=== PATIENT | female | born 1945 | race Caucasian/White ===

== ENCOUNTER 2016-12-04 14:49 | Inpatient (IN) | payer MEDICARE, BC ==
[~2016-12-04] VITALS: Ht 160 cm; Wt 82.3 kg
[2016-12-04] VITALS (8 sets, daily range): BP systolic 102–146; BP diastolic 53–65; PULSE 64–71; RESP 16–19; TEMP 98.1; O2SAT 95–100
[~2016-12-04 14:49] MED LIST: ARIC5TAB PO; ASPI325T PO; CITA10TA4 PO; LIPI40TA PO; MEMA1CAP2 PO; METO25 PO; OMEP20TA PO; [UNRECOGNIZED DRUG - CODE] PO; [UNRECOGNIZED DRUG - SUPPLY]
--- NOTE | 2016-12-04 15:04 | PD ---
HPI Chief Complaint: Fall Time Seen by Provider: 14:57 Travel History International Travel<30 days: No Contact w/Intl Traveler<30days: No Traveled to known affect area: No History of Present Illness HPI This is a 71-year-old female who presents to the emergency department having fallen in the shower. She has a history of dementia. She frequently falls and her told EMS that she fell twice this week already. Her was able to move her out of the shower and put her in bed where EMS found her. EMS reports that she was fairly somnolent upon their arrival and they placed a nasal airway at which point she awoke. Patient doesn't provide much history but EMS reports the felt like she was more confused this past several days. PFSH Past Medical History Hx Anticoagulant Therapy: Yes Alzheimer's Disease: Yes Arthritis: No Asthma: No Anxiety: No Depression: No Heart Rhythm Problems: Yes Cancer: No Cardiovascular Problems: No High Cholesterol: Yes Chemotherapy: No Chest Pain: No Congestive Heart Failure: No COPD: No Cerebrovascular Accident: Yes (TIA) Diabetes: No Endocrine: No Genitourinary: No Hypertension: Yes Musculoskeletal: No Neurologic: Yes (Dementia) Psychiatric: Yes (Dementia) Reproductive: No Respiratory: No Migraines: No Radiation Therapy: No Seizures: No Sleep Apnea: No Thyroid Disease: No ?: Not Past Surgical History Abdominal Surgery: No AICD: No Arteriovenous Shunt: No Cardiac Surgery: No Ear Surgery: No Endocrine Surgery: No Eye Surgery: No Genitourinary Surgery: No Gynecologic Surgery: No Insulin Pump: No Joint Replacement: No Oral Surgery: No Pacemaker: No Thoracic Surgery: No Other Surgery: Yes Social History Alcohol Use: No Tobacco Use: No Substance Use: No Allergies-Medications (Allergen,Severity, Reaction): Coded Allergies: Tetanus Toxoid (Verified Allergy, Severe, paralyzed , 12/04/16) Paralyzed for 24 hours after shot Reported Meds & Prescriptions Reported Meds & Active Scripts Active Reported Aspirin 325 Mg Tab 325 Mg PO DAILY Metoprolol Tartrate 25 Mg Tab 25 Mg PO BID Namenda Xr (Memantine) 28 Mg Caper 28 Mg PO DAILY Omeprazole 20 Mg Tab 20 Mg PO DAILY Donepezil 10 Mg Tab 10 Mg PO HS Review of Systems ROS Limitations: Poor Historian Physical Exam Narrative GENERAL: Frail female in no acute distress SKIN: Warm and dry. HEAD: Atraumatic. Normocephalic. EYES: Pupils equal and round. No injection or drainage. ENT: Moist mucous membranes NECK: Trachea midline. CARDIOVASCULAR: Regular rate and rhythm. No murmur appreciated. RESPIRATORY: Clear to auscultation. Breath sounds equal bilaterally. GASTROINTESTINAL: Abdomen soft, non-tender, nondistended. MUSCULOSKELETAL: No obvious deformities. NEUROLOGICAL: Confused, But Doesn't Answer Questions Appropriately. No obvious cranial nerve deficits. Moving all extremities. PSYCHIATRIC: Poor insight and judgment. Data Data Last Documented VS Vital Signs Date Time Temp Pulse Resp B/P Pulse Ox O2 Delivery O2 Flow Rate FiO2 12/04/16 15:50 71 16 102/55 98 Nasal Cannula 2 12/04/16 14:49 98.1 Orders Complete Blood Count With Diff (12/04/16 14:57) Comprehensive Metabolic Panel (12/04/16 14:57) ^ Insert Iv (12/04/16 14:57) Ct Brain W/O Iv Contrast(Rout) (12/04/16 ) Cath For Specimen (12/04/16 14:57) Urinalysis - C+S If Indicated (12/04/16 14:57) Urine Culture (12/04/16 15:10) Ceftriaxone Inj (Rocephin Inj) (12/04/16 16:30) Labs Laboratory Tests Test 12/04/16 12/04/16 15:10 15:15 Urine Color YELLOW Urine Turbidity HAZY Urine pH 5.5 Urine Specific [place] 1.020 Urine Protein 30 mg/dL Urine Glucose (UA) NEG mg/dL Urine Ketones NEG mg/dL Urine Occult Blood SMALL Urine Nitrite NEG Urine Bilirubin NEG Urine Urobilinogen LESS THAN 2.0 MG/DL Urine Leukocyte Esterase LARGE Urine RBC 5 /hpf Urine WBC 154 /hpf Urine WBC Clumps MOD Urine Squamous Epithelial 1 /hpf Cells Urine Bacteria MANY /hpf Urine Hyaline Casts 18 /lpf Urine Mucus MANY /lpf Microscopic Urinalysis Comment CATH-CULTURE IND White Blood Count 7.9 TH/MM3 Red Blood Count 4.72 MIL/MM3 Hemoglobin 14.2 GM/DL Hematocrit 42.6 % Mean Corpuscular Volume 90.3 FL Mean Corpuscular Hemoglobin 30.0 PG Mean Corpuscular Hemoglobin 33.3 % Concent Red Cell Distribution Width 14.6 % Platelet Count 156 TH/MM3 Mean Platelet Volume 8.8 FL Neutrophils (%) (Auto) 74.7 % Lymphocytes (%) (Auto) 13.2 % Monocytes (%) (Auto) 10.2 % Eosinophils (%) (Auto) 1.2 % Basophils (%) (Auto) 0.7 % Neutrophils # (Auto) 5.9 TH/MM3 Lymphocytes # (Auto) 1.0 TH/MM3 Monocytes # (Auto) 0.8 TH/MM3 Eosinophils # (Auto) 0.1 TH/MM3 Basophils # (Auto) 0.1 TH/MM3 CBC Comment AUTO DIFF Sodium Level 141 MEQ/L Potassium Level 3.4 MEQ/L Chloride Level 105 MEQ/L Carbon Dioxide Level 25.5 MEQ/L Anion Gap 11 MEQ/L Blood Urea Nitrogen 19 MG/DL Creatinine 1.30 MG/DL Estimat Glomerular Filtration 40 ML/MIN Rate Random Glucose 108 MG/DL Calcium Level 8.3 MG/DL Total Bilirubin 0.4 MG/DL Aspartate Amino Transf 59 U/L (AST/SGOT) Alanine Aminotransferase 29 U/L (ALT/SGPT) Alkaline Phosphatase 73 U/L Total Protein 6.9 GM/DL Albumin 3.2 GM/DL MDM Medical Decision Making Medical Screen Exam Complete: Yes Emergency Medical Condition: Yes Interpretation(s) Afebrile, normotensive No leukocytosis Mild renal insufficiency Urinalysis: Urinary tract infection Last [address] 12/04/16 0000 Signed Impressions: Service Date/Time: Sunday, December 04, 2016 15:23 - CONCLUSION: No significant change has occurred. Dusty Woodward MD Differential Diagnosis Urinary tract infection, intracranial hemorrhage, concussion, electrolyte abnormality Narrative Course This is a 71-year-old female who has a history of advanced dementia who presents to the emergency department having had a fall at home in the shower. She was placed on a monitor and an IV was established. Labs are obtained which are reassuring with some mild acute kidney injury. She was given a liter of IV hydration. Urinalysis demonstrates a urinary tract infection. CT of the head was negative for intracranial hemorrhage. Per nursing conversation with the patient's patient appears at her neurologic baseline. Patient will be discharged home. Diagnosis Primary Impression: Urinary tract infection Qualified Code: N30.00 - Acute cystitis without hematuria Patient Instructions: General Instructions Additional Instructions: If you develop fever, persistent vomiting, back pain, or inability to eat return to the emergency department as your urine infection may have progressed to a kidney infection. Complete your antibiotics as prescribed. Stay well hydrated with Gatorade or water. Followup with your primary care physician in 2-3 days if your symptoms have not resolved. Med/Other Pt SpecificInfo: Prescription(s) given Scripts Cephalexin (Keflex)500 Mg [id number] Mg PO Q12H 7 Days Ref 0 Prov:Pepper Chris MD 12/04/16 Disposition: 01 DISCHARGE HOME Condition: Stable Pepper Chris MD Dec 04, 2016 15:04
[2016-12-04] MEDS ORDERED: METO25TA3 PO (15:27)
[2016-12-04] MEDS ORDERED: MEMA28CA PO (15:27)
[2016-12-04] MEDS ORDERED: ASPI325T PO (15:27)
[2016-12-04] MEDS ORDERED: DONE10TA7 PO (15:27)
[2016-12-04] MEDS ORDERED: OMEP20TA PO (15:27)
[2016-12-04 15:32] LABS: BACTERIA, URINE MANY /hpf; BLOOD, URINE SMALL (NEG); GLUCOSE,URINE NEG (NEG); HYALINE CAST, URINE 18 /lpf (RARE); KETONE, URINE NEG (NEG); MUCUS URINE MANY /lpf (OCC); NITRITE,URINE NEG (NEG); PH, URINE 5.5 (5.0-8.5); SQUAMOUS EPITHELIAL CELL URINE 1 /hpf (0-5); URINE COLOR YELLOW (YELLW/STRAW)
[2016-12-04 15:33] LABS: COMMENT (UR) CATH-CULTURE IND; CULTURE IF INDICATED CATH CULTURE IND
--- NOTE | 2016-12-04 15:53 | RADRPT ---
EXAM DATE/TIME: 12/04/2016 15:23 [facility] COMPARISON: CT BRAIN W/O CONTRAST, February 11, 2016, 14:17. INDICATIONS : Fell in shower. Confusion worsening past few days. RADIATION DOSE: 69.15 CTDIvol (mGy) MEDICAL HISTORY : Dementia. Cerebrovascular disease. Hypertension.Anticoagulant therapy. SURGICAL HISTORY : None. ENCOUNTER: Initial ACUITY: 1 day PAIN SCALE: Non-responsive LOCATION: cranial TECHNIQUE: Multiple contiguous axial images were obtained of the head. Using automated exposure control and adj ustment of the mA and/or kV according to patient size, radiation dose was kept as low as reasonably a chievable to obtain optimal diagnostic quality images. FINDINGS: There is diffuse atrophy and patchy white matter disease. No hemorrhage, infarct, or mass. No fractur es are seen. There is chronic opacification of left sphenoid sinus with periosteal thickening noted. CONCLUSION: No significant change has occurred. Dusty Woodward MD on December 04, 2016 at 15:51 Board Certified Radiologist. This report was verified electronically.
[2016-12-04 15:58] LABS: ALKALINE PHOSPHATASE 73 U/L (45-117); ALT (GPT) 29 U/L (10-53); TOTAL BILIRUBIN ADULT 0.4 MG/DL (0.2-1.0)
[2016-12-04 16:04] LABS: ANION GAP 11 MEQ/L (5-15); AST (GOT) 59 U/L (15-37); BICARBONATE 25.5 MEQ/L (21.0-32.0); BLOOD UREA NITROGEN 19 MG/DL (7-18); CHLORIDE 105 MEQ/L (98-107); GLOMERULAR FILTRATION RATE 40 ML/MIN (>89); POTASSIUM 3.4 MEQ/L (3.5-5.1); SODIUM (NA) 141 MEQ/L (136-145)
[2016-12-04] MEDS ORDERED: cefTRIAXone INJ 1,000 MG in SODIUM CHLORIDE 0.9% INJ 100 ML IV ONE (16:30)
[2016-12-04 16:36] LABS: AUTOMATED NEUTROPHIL # 5.9 TH/MM3 (1.8-7.7); BASOPHIL # 0.1 TH/MM3 (0-0.2); BASOPHIL % 0.7 % (0.0-2.0); EOSINOPHIL # 0.1 TH/MM3 (0-0.4); EOSINOPHIL % 1.2 % (0.0-4.0); HEMATOCRIT 42.6 % (35.0-46.0); LYMPH % 13.2 % (9.0-44.0); MEAN CELL VOLUME 90.3 FL (80.0-100.0); MEAN CORPUSCULAR HGB CONC 33.3 % (32.0-36.0); MONO % 10.2 % (0.0-8.0); NEUT % 74.7 % (16.0-70.0); PLATELET COUNT 156 TH/MM3 (150-450); RED BLOOD COUNT 4.72 MIL/MM3 (4.00-5.30); RED CELL DISTRIBUTION WIDTH 14.6 % (11.6-17.2); WHITE BLOOD COUNT 7.9 TH/MM3 (4.0-11.0)
[2016-12-04 16:37] LABS: HEMO FLAGS AUTO DIFF
[2016-12-04] MEDS ORDERED: CEPH-460 PO (16:42)
[2016-12-04] MEDS ORDERED: SODIUM CHLOR 0.9% 1000 ML INJ 1,000 ML IV SCH ×2 (16:45→19:05)
[2016-12-04 17:10] LABS: BANDS 8 % (0-6); BASOPHILS 4 % (0-2); CORRECTED NUCLEATED RBC 1 /100 WBC (0-0); NEUTROPHIL # MANUAL DIFF 6.5 TH/MM3 (1.8-7.7); OVALOCYTES 1+ (NORMAL); POLYS (SEG NEUTROPHILS) 74 % (16-70); WBC DIFF SAMPLE 100
[2016-12-04 17:11] LABS: PLATELET ESTIMATE SMEAR LOW (NORMAL); PLATELET MORPHOLOGY NORMAL (NORMAL); SCAN/DIFF FINAL DIFF MANUAL
--- NOTE | 2016-12-04 17:54 | PD ---
Data Data Last Documented VS Vital Signs Date Time Temp Pulse Resp B/P Pulse Ox O2 Delivery O2 Flow Rate FiO2 12/04/16 15:50 71 16 102/55 98 Nasal Cannula 2 12/04/16 14:49 98.1 Orders Complete Blood Count With Diff (12/04/16 14:57) Comprehensive Metabolic Panel (12/04/16 14:57) ^ Insert Iv (12/04/16 14:57) Ct Brain W/O Iv Contrast(Rout) (12/04/16 ) Cath For Specimen (12/04/16 14:57) Urinalysis - C+S If Indicated (12/04/16 14:57) Urine Culture (12/04/16 15:10) Ceftriaxone Inj (Rocephin Inj) (12/04/16 16:30) Sodium Chlor 0.9% 1000 Ml Inj (Ns 1000 M (12/04/16 16:45) Labs Laboratory Tests Test 12/04/16 12/04/16 15:10 15:15 Urine Color YELLOW Urine Turbidity HAZY Urine pH 5.5 Urine Specific [place] 1.020 Urine Protein 30 mg/dL Urine Glucose (UA) NEG mg/dL Urine Ketones NEG mg/dL Urine Occult Blood SMALL Urine Nitrite NEG Urine Bilirubin NEG Urine Urobilinogen LESS THAN 2.0 MG/DL Urine Leukocyte Esterase LARGE Urine RBC 5 /hpf Urine WBC 154 /hpf Urine WBC Clumps MOD Urine Squamous Epithelial 1 /hpf Cells Urine Bacteria MANY /hpf Urine Hyaline Casts 18 /lpf Urine Mucus MANY /lpf Microscopic Urinalysis Comment CATH-CULTURE IND White Blood Count 7.9 TH/MM3 Red Blood Count 4.72 MIL/MM3 Hemoglobin 14.2 GM/DL Hematocrit 42.6 % Mean Corpuscular Volume 90.3 FL Mean Corpuscular Hemoglobin 30.0 PG Mean Corpuscular Hemoglobin 33.3 % Concent Red Cell Distribution Width 14.6 % Platelet Count 156 TH/MM3 Mean Platelet Volume 8.8 FL Neutrophils (%) (Auto) 74.7 % Lymphocytes (%) (Auto) 13.2 % Monocytes (%) (Auto) 10.2 % Eosinophils (%) (Auto) 1.2 % Basophils (%) (Auto) 0.7 % Neutrophils # (Auto) 5.9 TH/MM3 Lymphocytes # (Auto) 1.0 TH/MM3 Monocytes # (Auto) 0.8 TH/MM3 Eosinophils # (Auto) 0.1 TH/MM3 Basophils # (Auto) 0.1 TH/MM3 CBC Comment AUTO DIFF Differential Total Cells 100 Counted Neutrophils % (Manual) 74 % Band Neutrophils % 8 % Lymphocytes % 11 % Monocytes % 3 % Basophils % 4 % Neutrophils # (Manual) 6.5 TH/MM3 Nucleated Red Blood Cells 1 /100 WBC Differential Comment FINAL DIFF MANUAL Platelet Estimate LOW Platelet Morphology Comment NORMAL Ovalocytes 1+ Sodium Level 141 MEQ/L Potassium Level 3.4 MEQ/L Chloride Level 105 MEQ/L Carbon Dioxide Level 25.5 MEQ/L Anion Gap 11 MEQ/L Blood Urea Nitrogen 19 MG/DL Creatinine 1.30 MG/DL Estimat Glomerular Filtration 40 ML/MIN Rate Random Glucose 108 MG/DL Calcium Level 8.3 MG/DL Total Bilirubin 0.4 MG/DL Aspartate Amino Transf 59 U/L (AST/SGOT) Alanine Aminotransferase 29 U/L (ALT/SGPT) Alkaline Phosphatase 73 U/L Total Protein 6.9 GM/DL Albumin 3.2 GM/DL MDM Supervised Visit with MARICRUZ: No Narrative Course I got a chance to meet this patient's when he came to the bedside. He is very concerned about taking the patient home. He says she's not at her normal baseline. He says over the past 3 days she's not been walking. He says usually he is able to take her out to breakfast every morning and in the past 2- 3 days she's been basically bedbound. She's been incontinent of both urine and stool. He says this is very unlike her. He's not able to take care of her at home. He feels she is not as alert as normal. I suspect this is all still in the setting of a urinary tract infection but given there is a component of altered mental status at think it's reasonable to admit the patient for IV antibiotics. Diagnosis Primary Impression: Urinary tract infection Qualified Code: N30.00 - Acute cystitis without hematuria Admitting Information Admitting Physician Requests: Admit Patient Instructions: General Instructions, Urinary Tract Infection in Women ( ED) Departure Forms: Tests/Procedures Additional Instruction: If you develop fever, persistent vomiting, back pain, or inability to eat return to the emergency department as your urine infection may have progressed to a kidney infection. Complete your antibiotics as prescribed. Stay well hydrated with Gatorade or water. Followup with your primary care physician in 2-3 days if your symptoms have not resolved. Scripts Cephalexin (Keflex)500 Mg [id number] Mg PO Q12H 7 Days Ref 0 Prov:Pepper Chris MD 12/04/16 Disposition: 01 DISCHARGE HOME Condition: Stable Pepper Chris MD Dec 04, 2016 17:54
--- NOTE | 2016-12-04 18:46 | HHI.HP ---
[facility] Service Family Medicine Primary Care Physician Benny Marino MD Admission Diagnosis urinary tract infection, altered mental status Diagnoses: International Travel<30 Days: No Contact w/Intl Traveler<30days: No Known Affected Area: No History of Present Illness 71-year-old female here with a past history of Alzheimer's dementia presents with altered mental status. At the time of my interview, she is the only one in the room. She is unable to provide any history given her mental state. I called her José Houston. He states that everything started in the last 2 days. Normally she is alert and oriented to person place and time. She takes her own showers and dresses herself. She has been unable to do this for the last 2 days. She started losing her balance which caused her to fall twice. He does not think she has fractures anywhere. She has been able to stand and walk since the falls but slower. She has lost control of her bowel movements and wet the bed. He called Dr. Olivarez office and was recommended he come to the ER with her. Review of Systems ROS Limitations: Clinical Condition, Altered Mental Status, Uncooperative, Poor Historian Past Family Social History Past Medical History Per the EMR, Pre-diabetes Alzheimers Dementia Whooping cough (as child) Measles (as child) Mumps (as child) Past Surgical History Per the EMR, Tonsillectomy Vaginal delivery x2 Reported Medications Reported Meds & Active Scripts Active Keflex (Cephalexin) 500 Mg Cap 500 Mg PO Q12H 7 Days Reported Aspirin 325 Mg Tab 325 Mg PO DAILY Metoprolol Tartrate 25 Mg Tab 25 Mg PO BID Namenda Xr (Memantine) 28 Mg Caper 28 Mg PO DAILY Omeprazole 20 Mg Tab 20 Mg PO DAILY Donepezil 10 Mg Tab 10 Mg PO HS Allergies: Coded Allergies: Tetanus Toxoid (Verified Allergy, Severe, paralyzed , 12/04/16) Paralyzed for 24 hours after shot Active Ordered Medications Active Medications Ceftriaxone Sodium 1000 mg/ Sodium Chloride 100 ml @ 200 mls/hr ONCE ONCE IV Last administered on 12/04/16 16:46; Admin Dose 200 MLS/HR; Start 12/04/16 at 16: 30; Stop 12/04/16 at 16:59; Status DC Sodium Chloride (NS 1000 ml Inj) 1,000 ml @ 999 mls/hr Q1H1M IV Last administered on 3/5/17at 16:46; Admin Dose 999 MLS/HR; Start 12/04/16 at 16:45; Stop 12/04/16 at 17:45; Status DC Family History Per the EMR, Father: from pancreatic cancer - age 57 Mother: from pneumonia, alzheimers Siblings: 2 sisters, 1 brother - all (emphysema, ? 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 However, she is alert to person only. SKIN: No rashes, ecchymoses or lesions. Cool and dry. HEAD: Atraumatic. Normocephalic. No temporal or scalp tenderness. EYES: Pupils equal round and reactive. Extraocular motions intact. No scleral icterus. No injection or drainage. ENT: Nose without bleeding, purulent drainage or septal hematoma. Throat without erythema, tonsillar hypertrophy or exudate. Uvula midline. Airway patent. NECK: Trachea midline. No JVD or lymphadenopathy. Supple, nontender, no meningeal signs. CARDIOVASCULAR: Regular rate and rhythm without murmurs, gallops, or rubs. RESPIRATORY: Clear to auscultation. Breath sounds equal bilaterally. No wheezes , rales, or rhonchi. GASTROINTESTINAL: Abdomen soft, non-tender, nondistended. No hepato-splenomegaly , or palpable masses. No guarding. MUSCULOSKELETAL: Extremities without clubbing, cyanosis, or edema. No joint tenderness, effusion, or edema noted. NEUROLOGICAL: Cranial nerves II through XII intact. Motor and sensory grossly within normal limits as she is able to move all extremities. However she is very uncooperative secondary to altered mental state. Tangential speech. Does not answer the question she has been asked. Laboratory Laboratory Tests Test 12/04/16 12/04/16 15:10 15:15 Urine Color YELLOW Urine Turbidity HAZY Urine pH 5.5 Urine Specific [place] 1.020 Urine Protein 30 Urine Glucose (UA) NEG Urine Ketones NEG Urine Occult Blood SMALL Urine Nitrite NEG Urine Bilirubin NEG Urine Urobilinogen LESS THAN 2.0 Urine Leukocyte Esterase LARGE Urine RBC 5 Urine WBC 154 Urine WBC Clumps MOD Urine Squamous Epithelial 1 Cells Urine Bacteria MANY Urine Hyaline Casts 18 Urine Mucus MANY Microscopic Urinalysis Comment CATH-CULTURE IND White Blood Count 7.9 Red Blood Count 4.72 Hemoglobin 14.2 Hematocrit 42.6 Mean Corpuscular Volume 90.3 Mean Corpuscular Hemoglobin 30.0 Mean Corpuscular Hemoglobin 33.3 Concent Red Cell Distribution Width 14.6 Platelet Count 156 Mean Platelet Volume 8.8 Neutrophils (%) (Auto) 74.7 Lymphocytes (%) (Auto) 13.2 Monocytes (%) (Auto) 10.2 Eosinophils (%) (Auto) 1.2 Basophils (%) (Auto) 0.7 Neutrophils # (Auto) 5.9 Lymphocytes # (Auto) 1.0 Monocytes # (Auto) 0.8 Eosinophils # (Auto) 0.1 Basophils # (Auto) 0.1 CBC Comment AUTO DIFF Differential Total Cells 100 Counted Neutrophils % (Manual) 74 Band Neutrophils % 8 Lymphocytes % 11 Monocytes % 3 Basophils % 4 Neutrophils # (Manual) 6.5 Nucleated Red Blood Cells 1 Differential Comment FINAL DIFF MANUAL Platelet Estimate LOW Platelet Morphology Comment NORMAL Ovalocytes 1+ Sodium Level 141 Potassium Level 3.4 Chloride Level 105 Carbon Dioxide Level 25.5 Anion Gap 11 Blood Urea Nitrogen 19 Creatinine 1.30 Estimat Glomerular Filtration 40 Rate Random Glucose 108 Calcium Level 8.3 Total Bilirubin 0.4 Aspartate Amino Transf 59 (AST/SGOT) Alanine Aminotransferase 29 (ALT/SGPT) Alkaline Phosphatase 73 Total Protein 6.9 Albumin 3.2 Date/Time Procedure Status Source Growth 12/04/16 18:20 Aerobic Blood Culture Received Blood Peripheral Pending 12/04/16 18:20 Anaerobic Blood Culture Received Blood Peripheral Pending 12/04/16 15:10 Urine Culture Received Urine Catheterized Urine Pending Result Diagram: 12/04/16 4875 12/04/16 1515 Imaging Last Impressions Head CT 12/04/16 0000 Signed Impressions: Service Date/Time: Sunday, December 04, 2016 15:23 - CONCLUSION: No significant change has occurred. Dusty Woodward MD Assessment and Plan Assessment and Plan 71-year-old female with history of Alzheimer's dementia presents with altered mental status and UTI. Will treat as below. Code Status Full Problem List: (1) Altered mental status Status: Acute Plan: Suspect related to urinary tract infection Head CT negative Order labs: RPR, vitamin B12, vitamin B1, phosphorus, magnesium, lactic acid Treat UTI as below Blood culture pending Fall precautions Nursing order to keep patient close to nursing station Every 4 hours vitals (2) UTI (urinary tract infection) Status: Acute Plan: Patient received 1 g of ceftriaxone in the emergency room Continue 1 g IV ceftriaxone every 24 hours daily Urine culture pending (3) MARGARITO (acute kidney injury) Status: Acute Plan: Likely prerenal Expect improvement with fluids (4) FEN/PPX Status: Acute Plan: Fluids: Normal saline with 20 mEq potassium at 110 ML's per hour; consider removing potassium from fluids tomorrow Electrolytes: Monitor and replace when necessary Nutrition: Regular diet if passes bedside swallow evaluation Prophylaxis: Bilateral SCDs Chronic medical conditions: CAD prevention/hypertension: Continue aspirin and metoprolol Dementia: Hold donepezil and memantine and acute illness. GERD: Continue omeprazole Physician Certification 2 Midnight Certification Type: Admission for Inpatient Services Order for Inpatient Services The services are ordered in accordance with Medicare regulations or non- Medicare payer requirements, as applicable. In the case of services not specified as inpatient-only, they are appropriately provided as inpatient services in accordance with the 2-midnight benchmark. Estimated LOS (days): 2 days is the estimated time the patient will need to remain in the hospital, assuming treatment plan goals are met and no additional complications. Post-Hospital Plan: Not yet determined Thad Houston MD R2 Dec 04, 2016 18:46
[2016-12-04] MEDS ORDERED: DOCUSATE SODIUM 50 MG/SENNA 8.6 MG TAB PO PRN (19:15)
[2016-12-04] MEDS ORDERED: ACETAMINOPHEN 325 MG TAB PO PRN (19:15)
[2016-12-04] MEDS ORDERED: ONDANSETRON HCL 4 MG/2 ML VIAL IV PRN (19:15)
[2016-12-04] MEDS: METOPROLOL TARTRATE 25 MG TAB PO SCH (21:00)
[2016-12-04 21:09] LABS: MAGNESIUM 2.1 MG/DL (1.5-2.5)
[2016-12-04] MEDS: NS + KCL 20 MEQ INJ 1,000 ML IV SCH (21:22)
[2016-12-05] VITALS (7 sets, daily range): BP systolic 142–158; BP diastolic 60–75; PULSE 71–86; RESP 14–18; TEMP 97.9–99.3; O2SAT 91–98
[2016-12-05 04:49] LABS: BASOPHIL % 0.7 % (0.0-2.0); HEMATOCRIT 37.2 % (35.0-46.0); HEMO FLAGS DIFF FINAL; LYMPH % 21.9 % (9.0-44.0); LYMPHOCYTE # 1.3 TH/MM3 (1.0-4.8); MEAN CELL VOLUME 87.7 FL (80.0-100.0); MEAN CORPUSCULAR HEMOGLOBIN 29.8 PG (27.0-34.0); MEAN CORPUSCULAR HGB CONC 33.9 % (32.0-36.0); MONO % 9.4 % (0.0-8.0); PLATELET COUNT 137 TH/MM3 (150-450); RED BLOOD COUNT 4.23 MIL/MM3 (4.00-5.30); RED CELL DISTRIBUTION WIDTH 14.1 % (11.6-17.2); WHITE BLOOD COUNT 5.9 TH/MM3 (4.0-11.0)
[2016-12-05 05:14] LABS: ALKALINE PHOSPHATASE 67 U/L (45-117); ALT (GPT) 24 U/L (10-53); ANION GAP 8 MEQ/L (5-15); AST (GOT) 37 U/L (15-37); BICARBONATE 25.2 MEQ/L (21.0-32.0); BLOOD UREA NITROGEN 12 MG/DL (7-18); CHLORIDE 113 MEQ/L (98-107); GLOMERULAR FILTRATION RATE 94 ML/MIN (>89); POTASSIUM 3.7 MEQ/L (3.5-5.1); SODIUM (NA) 146 MEQ/L (136-145); TOTAL BILIRUBIN ADULT 0.2 MG/DL (0.2-1.0)
[2016-12-05] MEDS: NS + KCL 20 MEQ INJ 1,000 ML IV SCH (05:25)
[2016-12-05] MEDS: PANTOPRAZOLE SOD 20 MG DELAYED RELEASE TAB PO SCH (08:52)
[2016-12-05] MEDS: ASPIRIN 325 MG TAB PO SCH (08:52)
[2016-12-05] MEDS: METOPROLOL TARTRATE 25 MG TAB PO SCH ×2 (08:52→23:13)
--- NOTE | 2016-12-05 10:21 | HHI.FPPN ---
Subjective Subjective Patient seen and examined. Case reviewed and discussed Please refer to resident H&P for further details regarding HPI, ROS, PMH, SurgHX , FH and SocHx In summary, patient is a 71yoF with a history of dementia presenting with AMS and an episode or urinary and bowel incontinence. Per nursing, patient continued to be confused overnight with sitter at the bedside. She seen in her hospital bed, resting comfortably. She is oriented to self alone. [facility] Objective Objective Last Impressions Head CT 12/04/16 0000 Signed Impressions: Service Date/Time: Sunday, December 04, 2016 15:23 - CONCLUSION: No significant change has occurred. Dusty Woodward MD Laboratory Tests - Abnormals Test 12/04/16 12/04/16 12/05/16 15:10 15:15 04:28 Urine Turbidity HAZY Urine Protein 30 mg/dL Urine Occult Blood SMALL Urine Leukocyte Esterase LARGE Urine RBC 5 /hpf Urine WBC 154 /hpf Urine WBC Clumps MOD Urine Bacteria MANY /hpf Urine Mucus MANY /lpf Neutrophils (%) (Auto) 74.7 % Monocytes (%) (Auto) 10.2 % 9.4 % Neutrophils % (Manual) 74 % Band Neutrophils % 8 % Basophils % 4 % Nucleated Red Blood Cells 1 /100 WBC Platelet Estimate LOW Ovalocytes 1+ Potassium Level 3.4 MEQ/L Blood Urea Nitrogen 19 MG/DL Creatinine 1.30 MG/DL Estimat Glomerular Filtration 40 ML/MIN Rate Random Glucose 108 MG/DL 110 MG/DL Calcium Level 8.3 MG/DL 7.7 MG/DL Aspartate Amino Transf 59 U/L (AST/SGOT) Albumin 3.2 GM/DL 2.7 GM/DL Platelet Count 137 TH/MM3 Sodium Level 146 MEQ/L Chloride Level 113 MEQ/L Total Protein 5.8 GM/DL Vital Signs 12/04/16 12/04/16 12/04/16 12/04/16 14:49 14:50 14:50 14:50 Temp 98.1 Pulse 67 65 69 Resp 18 16 16 B/P 120/54 120/54 Pulse Ox 95 95 99 99 O2 Delivery Nasal Cannula Nasal Cannula Nasal Cannula O2 Flow Rate 2 2 2 12/04/16 12/04/16 12/04/16 12/04/16 15:50 18:00 19:29 20:00 Pulse 71 71 64 Resp 16 16 18 B/P 102/55 131/59 131/59 Pulse Ox 98 98 97 100 O2 Delivery Nasal Cannula Nasal Cannula Nasal Cannula Nasal Cannula O2 Flow Rate 2 2 2.00 2 12/04/16 12/04/16 12/05/16 12/05/16 21:22 23:58 07:41 08:50 Temp 98.1 97.9 Pulse 67 68 86 82 Resp 16 19 18 14 B/P 106/53 146/65 151/65 Pulse Ox 98 98 97 94 O2 Delivery Nasal Cannula O2 Flow Rate 2 12/05/16 12/05/16 09:55 09:55 Pulse Ox 91 93 Physical exam GENERAL: Elderly female sitting up in bed, awake. NAD SKIN: Warm and dry. No rashes or lesions HEAD: Normocephalic. Atraumatic EYES: No scleral icterus. No injection or drainage. ENT: OP clear. Nasal cannula in place. NECK: Supple, trachea midline. No JVD or lymphadenopathy. CARDIOVASCULAR: Regular rate and rhythm without audible murmurs, gallops, or rubs. RESPIRATORY: Breath sounds are coarse with scattered rhonchi bilaterally. No accessory muscle use. No wheezing GASTROINTESTINAL: Abdomen soft, non-tender, nondistended. No rebound or guarding. : Caceres to gravity MUSCULOSKELETAL: No cyanosis, or edema. No calf tenderness BACK: Nontender without obvious deformity. No CVA tenderness. Neuro: Awake and alert. Oriented to self alone. Unable to consistently follow commands. Word finding difficulty. Struggles to answer questions appropriately. Assessment Assessment 71yoF admitted with: Falls at home AMS Urinary and bowel incontinence Dementia UTI Pre-DM Thrombocytopenia Hypokalemia Hypernatremia PLAN PLAN Follow urine culture results Blood cultures Empiric antibiotic therapy will titrate as needed pending urine culture results Sitter to the bedside EEG Brain MRI/MRA to rule out CVA Chest x-ray Resume home meds as appropriate Patient seen and examined. Case reviewed and discussed with the resident team. Agree with plan of care as discussed with me and documented in the resident note. Amanda Escamilla MD Dec 05, 2016 10:21
[2016-12-05] MEDS ORDERED: PT OWN MED: NAMENDA XR 28MG PO DAILY PO SCH (11:15)
--- NOTE | 2016-12-05 11:25 | RADRPT ---
EXAM DATE/TIME: 12/05/2016 10:59 [facility] COMPARISON: CHEST SINGLE AP, February 11, 2016, 12:51. INDICATIONS : Shortness of breath. MEDICAL HISTORY : Dementia. Cerebrovascular disease. Hypertension.Anticoagulant therapy SURGICAL HISTORY : None. ENCOUNTER: Initial ACUITY: 1 day PAIN SCORE: 0/10 LOCATION: Bilateral chest FINDINGS: Portable AP view of the chest demonstrates a normal-sized cardiac silhouette. No effusion, consolidat ion, or pneumothorax is visualized. The bones and soft tissues demonstrate no acute abnormality. CONCLUSION: No acute cardiopulmonary abnormality is identified. Sergio Baker MD on December 05, 2016 at 11:23 Board Certified Radiologist. This report was verified electronically.
[2016-12-05] MEDS: AZITHROMYCIN 250 MG TAB PO SCH (11:35)
--- NOTE | 2016-12-05 15:02 | RADRPT ---
EXAM DATE/TIME: 12/05/2016 13:42 [facility] COMPARISON: No previous studies available for comparison. INDICATIONS : Cerebrovascular accident. MEDICAL HISTORY : Dementia. Cerebrovascular disease. Hypertension.Anticoagulant therapy. SURGICAL HISTORY : None. ENCOUNTER: Initial ACUITY: 2 days PAIN SCORE: 0/10 LOCATION: Bilateral neck PEAK SYSTOLIC VELOCITIES (cm/sec): ICA/CCA RATIO: Right: 2.1 Left: 1.5 ICA: Right: 152 Left: 103 CCA: Right: 71 Left: 68 ECA: Right: 129 Left: 201 VERTEBRAL: Right: 76 antegrade Left: 47 antegrade Elevated flow velocities and ICA/CCA ratios have been found to correlate with increased degrees of vessel stenosis, calculated as percentage of diameter relative to a normal segment of distal ICA/CCA FINDINGS: Mild atherosclerotic plaque is identified in the proximal right internal carotid artery. Th ere is moderate heterogeneous calcified plaque in the proximal left internal carotid artery. RIGHT CAROTID: Increased loss either proximal internal carotid artery as well as elevated ICA/CCA ratio indicates a mild/moderate stenosis in the 30-49% range. The waveforms demonstrate mild spectra l broadening. LEFT CAROTID: Although significant plaque is identified in the left carotid bifurca tion there is no significant elevation of velocity or ICA/CCA ratio. VERTEBRAL ARTERIES: Antegrade flow is seen in both vertebral arteries. MISCELLANEOUS: None. CONCLUSION: Mild to moderate bilateral carotid plaques. Mild/moderate narrowing in the proximal right internal carotid artery based on velocity measurements and ICA/CCA ratio. Mild narrowing identified in the proximal left internal carotid artery without evidence of hemodynami anny significant stenosis. Antegrade flow both vertebral arteries. Brett Chaudhary MD on December 05, 2016 at 14:54 Board Certified Radiologist. This report was verified electronically.
--- NOTE | 2016-12-05 15:45 | RADRPT ---
EXAM DATE/TIME: 12/05/2016 14:53 [facility] COMPARISON: No previous studies available for comparison. INDICATIONS: CVA. MEDICAL HISTORY: Dementia. Hypertension. Alzheimer's. SURGICAL HISTORY: None. ENCOUNTER: Initial ACUITY: 1 day PAIN SCORE: 0/10 LOCATION: Cranial TECHNIQUE: Multiplanar, multisequence MRI of the brain was performed without contrast. FINDINGS: Moderate motion artifact is present. There is marked central and cortical atrophy through dilatation of ventricular and sulcal spaces. There is no restricted diffusion to suggest an acute infarction. There are no sig nificant extraaxial fluid collections appreciated. There is no parenchymal hemorrhage. Midline structures are intact. CONCLUSION: 1. Marked central and cortical atrophy without acute infarction. 2. Ventricular dilatation appears appropriate for the degree of sulcal dilatation. Mark Brooke MD FACR on December 05, 2016 at 15:40 Board Certified Radiologist. This report was verified electronically.
--- NOTE | 2016-12-05 15:45 | RADRPT ---
EXAM DATE/TIME: 12/05/2016 14:53 [facility] COMPARISON: No previous studies available for comparison. INDICATIONS : CVA. MEDICAL HISTORY : Dementia. Hypertension. Alzheimer's. SURGICAL HISTORY : None. ENCOUNTER: Initial ACUITY: 1 day PAIN SCORE: 0/10 LOCATION: Cranial Please note a normal MRA of the brain does not entirely exclude the possibility of a small aneurysm, nor the possibility of distal intracranial vessel disease. TECHNIQUE: 3D time of flight MRA was performed. Source images, multiplanar STS MIP, and 3D volum e MIP reconstructions were reviewed. FINDINGS: Moderate intracranial atherosclerotic vascular disease is present. There is no major b ranch vessel occlusion. Basilar artery is patent. The right vertebral is dominant. CONCLUSION: Moderate intracranial atherosclerotic vascular disease. Mark Brooke MD FACR on December 05, 2016 at 15:41 Board Certified Radiologist. This report was verified electronically.
[2016-12-05 15:52] LABS: RAPID PLASMA REAGIN SCREEN NON-REACTIVE (NON-REACTVE)
[2016-12-05] MEDS: cefTRIAXone INJ 1,000 MG in SODIUM CHLORIDE 0.9% INJ 100 ML IV SCH (15:53)
[2016-12-05] MEDS: SODIUM CHLOR 0.45% 1000 ML INJ 1,000 ML IV SCH (15:54)
[2016-12-05] MEDS: DONEPEZIL HCL 5 MG TAB PO SCH (23:13)
[2016-12-06] VITALS (7 sets, daily range): BP systolic 134–168; BP diastolic 60–86; PULSE 75–88; RESP 18–20; TEMP 97.6–99.3; O2SAT 90–97
[2016-12-06 05:43] LABS: HEMATOCRIT 36.9 % (35.0-46.0); MEAN CORPUSCULAR HEMOGLOBIN 29.4 PG (27.0-34.0); MEAN CORPUSCULAR HGB CONC 33.8 % (32.0-36.0); PLATELET COUNT 128 TH/MM3 (150-450); RED BLOOD COUNT 4.24 MIL/MM3 (4.00-5.30); REVIEW FLAG FINAL; WHITE BLOOD COUNT 4.8 TH/MM3 (4.0-11.0)
[2016-12-06 06:21] LABS: ALKALINE PHOSPHATASE 66 U/L (45-117); ALT (GPT) 25 U/L (10-53); ANION GAP 7 MEQ/L (5-15); AST (GOT) 38 U/L (15-37); BICARBONATE 27.7 MEQ/L (21.0-32.0); BLOOD UREA NITROGEN 7 MG/DL (7-18); CHLORIDE 101 MEQ/L (98-107); GLOMERULAR FILTRATION RATE 94 ML/MIN (>89); POTASSIUM 3.6 MEQ/L (3.5-5.1); SODIUM (NA) 136 MEQ/L (136-145); TOTAL BILIRUBIN ADULT 0.4 MG/DL (0.2-1.0)
--- NOTE | 2016-12-06 08:20 | HHI.FPPN ---
Subjective Remarks Nursing and bedside sitter reported no improvement in mental status. During interview, patient remains very confused. She is alert to person only. History severely limited. (Thad Houston MD R2) Objective Vitals Vital Signs Date Time Temp Pulse Resp B/P Pulse Ox O2 Delivery O2 Flow Rate FiO2 12/06/16 07:48 98.1 80 18 147/65 94 12/06/16 03:56 97.6 80 18 134/61 93 12/06/16 00:21 98.0 77 18 137/60 94 12/05/16 23:45 95 Nasal Cannula 2.00 12/05/16 20:07 98.0 81 18 158/75 94 12/05/16 15:35 99.3 77 17 147/64 98 12/05/16 12:19 98.0 71 17 142/60 97 12/05/16 09:55 93 12/05/16 09:55 91 12/05/16 08:50 82 14 94 (Thad Houston MD R2) Result Diagram: 12/06/1652112/06/16521 Imaging Last Impressions Head Magnetic Resonance Angiography 12/05/16 0000 Signed Impressions: Service Date/Time: Monday, December 05, 2016 14:53 - CONCLUSION: Moderate intracranial atherosclerotic vascular disease. Mark Brooke MD FACR Chest X-Ray 12/05/16 0000 Signed Impressions: Service Date/Time: Monday, December 05, 2016 10:59 - CONCLUSION: No acute cardiopulmonary abnormality is identified. Sergio Baker MD Carotid Artery Ultrasound 12/05/16 0000 Signed Impressions: Service Date/Time: Monday, December 05, 2016 13:42 - CONCLUSION: Mild to moderate bilateral carotid plaques. Mild/moderate narrowing in the proximal right internal carotid artery based on velocity measurements and ICA/CCA ratio. Mild narrowing identified in the proximal left internal carotid artery without evidence of hemodynamically significant stenosis. Antegrade flow both vertebral arteries. Brett Chaudhary MD Brain MRI 12/05/16 0000 Signed Impressions: Service Date/Time: Monday, December 05, 2016 14:53 - CONCLUSION: 1. Marked central and cortical atrophy without acute infarction. 2. Ventricular dilatation appears appropriate for the degree of sulcal dilatation. Mark Brooke MD FACR Head CT 12/04/16 0000 Signed Impressions: Service Date/Time: Sunday, December 04, 2016 15:23 - CONCLUSION: No significant change has occurred. Dusty Woodward MD Objective Remarks GENERAL: Elderly female sitting up in bed, awake. NAD SKIN: Warm and dry. No rashes or lesions HEAD: Normocephalic. Atraumatic EYES: No scleral icterus. No injection or drainage. ENT: OP clear. Nasal cannula in place. NECK: Supple, trachea midline. No JVD or lymphadenopathy. CARDIOVASCULAR: Regular rate and rhythm without audible murmurs, gallops, or rubs. RESPIRATORY: Breath sounds are coarse with scattered rhonchi bilaterally. No accessory muscle use. No wheezing GASTROINTESTINAL: Abdomen soft, non-tender, nondistended. No rebound or guarding. : Caceres to gravity MUSCULOSKELETAL: No cyanosis, or edema. No calf tenderness BACK: Nontender without obvious deformity. No CVA tenderness. Neuro: Awake and alert. Oriented to self alone. Unable to consistently follow commands. Word finding difficulty. Struggles to answer questions appropriately. (Thad Houston MD R2) A/P Assessment and Plan 71-year-old female with history of Alzheimer's dementia presents with altered mental status and UTI. Will treat as below. Discharge Planning Pending clinical improvement and treatment of urinary tract infection. Speech therapy recommends ST at discharge. PT recommends PT at home. (Thad Houston MD R2) Attending Attestation Patient seen and examined. Case reviewed and discussed Agree with plan of care as discussed with me and documented in the resident note. (Amanda Escamilla MD) Problem List: (1) Altered mental status Status: Acute Plan: Suspect related to urinary tract infection Treat UTI as below Blood culture: No growth to date (12/04) Fall precautions Nursing order to keep patient close to nursing station Empiric antibiotic therapy to include azithromycin (started 12/05) and ceftriaxone (started 12/04) Imaging: Head CT negative Brain MRI: Marked central and cortical atrophy without acute infarction. Carotid ultrasound: Mild to moderate bilateral carotid plaques. Mild narrowing identified in the proximal left ICA without evidence of hemodynamically significant stenosis. Chest x-ray: No acute disease. MRA: Moderate intracranial atherosclerotic vascular disease. Previous labs: Urine Legionella and streptococcal antigen negative. RPR nonreactive Vitamin B12 284 (2) UTI (urinary tract infection) Status: Acute Plan: Continue 1 g IV ceftriaxone every 24 hours daily (12/04-) Urine culture: Gram-negative chapito (3) MARGARITO (acute kidney injury) Status: Resolved Plan: Likely prerenal Expect improvement with fluids (4) FEN/PPX Status: Acute Plan: Fluids: Normal saline 100 mL per hour Electrolytes: Monitor and replace when necessary Nutrition: Regular diet Prophylaxis: Bilateral SCDs, Lovenox 40 mg subcutaneous every 24 hours Chronic medical conditions: CAD prevention/hypertension: Continue aspirin and metoprolol Dementia: Continue home donepezil and memantine GERD: Continue omeprazole (Thad Houston MD R2) Thad Houston MD R2 Dec 06, 2016 08:20 Amanda Escamilla MD Dec 07, 2016 16:28
[2016-12-06] MEDS: SODIUM CHLOR 0.45% 1000 ML INJ 1,000 ML IV SCH (08:54)
[2016-12-06] MEDS: PANTOPRAZOLE SOD 20 MG DELAYED RELEASE TAB PO SCH (08:54)
[2016-12-06] MEDS: ENOXAPARIN SODIUM 40 MG/0.4 ML SYRINGE SQ SCH (08:54)
[2016-12-06] MEDS: ASPIRIN 325 MG TAB PO SCH (08:54)
[2016-12-06] MEDS: AZITHROMYCIN 250 MG TAB PO SCH (08:55)
[2016-12-06] MEDS: METOPROLOL TARTRATE 25 MG TAB PO SCH ×2 (08:55→21:12)
[2016-12-06] MEDS: cefTRIAXone INJ 1,000 MG in SODIUM CHLORIDE 0.9% INJ 100 ML IV SCH (14:26)
--- NOTE | 2016-12-06 18:17 | MG ---
cc: JOSE MONTANO M.D. Lab No: Date: 12/06/2016 Age: Sex: F Race: REQUESTING PHYSICIAN Dr. Kim. INTRODUCTION An EEG was obtained on this 71-year-old patient being evaluated for hallucinations, confusion. DESCRIPTION The patient is described as confused, awake and asleep during the study. The study shows low amplitude rhythms. There is some theta activity intermixed with alpha rhythms. There is a lot of artifact. There are some mild delta rhythms bilaterally. There are some hallucinations as described by the design technician, during the EEG recording. There are no paroxysmal discharges. Hyperventilation was not performed. Photic stimulation shows some driving response bilaterally. The patient is asleep and there is snoring and generalized slowing. INTERPRETATION This EEG shows probable mild diffuse abnormality suggesting a diffuse disturbance of cerebral function but no epileptiform features are present. MD YOBANI Nick/KK /6:04 PM /6:14 PM
[2016-12-06] MEDS: DONEPEZIL HCL 5 MG TAB PO SCH (21:11)
[2016-12-07 05:30] LABS: AUTOMATED NEUTROPHIL # 3.2 TH/MM3 (1.8-7.7); BASOPHIL % 0.5 % (0.0-2.0); HEMATOCRIT 38.3 % (35.0-46.0); HEMO FLAGS DIFF FINAL; LYMPH % 24.4 % (9.0-44.0); LYMPHOCYTE # 1.2 TH/MM3 (1.0-4.8); MEAN CORPUSCULAR HGB CONC 33.8 % (32.0-36.0); MONO % 11.7 % (0.0-8.0); NEUT % 63.4 % (16.0-70.0); PLATELET COUNT 155 TH/MM3 (150-450); RED BLOOD COUNT 4.46 MIL/MM3 (4.00-5.30); RED CELL DISTRIBUTION WIDTH 13.8 % (11.6-17.2)
[2016-12-07 05:51] LABS: ALKALINE PHOSPHATASE 63 U/L (45-117); ALT (GPT) 24 U/L (10-53); ANION GAP 9 MEQ/L (5-15); AST (GOT) 28 U/L (15-37); BLOOD UREA NITROGEN 8 MG/DL (7-18); CHLORIDE 100 MEQ/L (98-107); GLOMERULAR FILTRATION RATE 98 ML/MIN (>89); POTASSIUM 3.8 MEQ/L (3.5-5.1); SODIUM (NA) 137 MEQ/L (136-145); TOTAL BILIRUBIN ADULT 0.5 MG/DL (0.2-1.0)
[2016-12-07 06:16] VITALS: BP 157/74; PULSE 76; RESP 18; TEMP 98.2; O2SAT 93
[2016-12-07 08:05] VITALS: O2SAT 92
[2016-12-07 08:18] VITALS: BP 134/62; PULSE 83; RESP 18; TEMP 99; O2SAT 92
[2016-12-07] MEDS: ASPIRIN 325 MG TAB PO SCH (09:20)
[2016-12-07] MEDS: PANTOPRAZOLE SOD 20 MG DELAYED RELEASE TAB PO SCH (09:21)
[2016-12-07] MEDS: AZITHROMYCIN 250 MG TAB PO SCH (09:21)
[2016-12-07] MEDS: ENOXAPARIN SODIUM 40 MG/0.4 ML SYRINGE SQ SCH (09:21)
[2016-12-07] MEDS: METOPROLOL TARTRATE 25 MG TAB PO SCH ×2 (09:22→21:58)
--- NOTE | 2016-12-07 09:38 | HHI.FPPN ---
Subjective Remarks Patient lying comfortably in bed, sitter at bedside. States that patient's read Kiran on the TV and read something else on the door. She just had a bowel movement. Otherwise, mental status unchanged. She says yes to everything. (Keisha Kim MD R1) Objective Vitals Vital Signs Date Time Temp Pulse Resp B/P Pulse Ox O2 Delivery O2 Flow Rate FiO2 12/07/16 08:18 99.0 83 18 134/62 92 12/07/16 08:05 92 21 12/07/16 06:16 98.2 76 18 157/74 93 12/06/16 23:57 97.6 75 18 145/73 93 12/06/16 20:09 98.0 88 18 168/86 97 12/06/16 15:45 99.3 81 20 134/62 90 12/06/16 11:52 97.6 83 18 137/66 93 I/O 12/06/16 12/06/16 12/06/16 12/07/16 12/07/16 12/07/16 07:00 15:00 23:00 07:00 15:00 23:00 # Voids 3 # Bowel Movements 4 (Keisha Kim MD R1) Result Diagram: 12/07/1644212/07/16442 Objective Remarks GENERAL: Elderly female sitting up in bed, awake. NAD SKIN: Warm and dry. No rashes or lesions HEAD: Normocephalic. Atraumatic EYES: No scleral icterus. No injection or drainage. ENT: OP clear. Nasal cannula in place. NECK: Supple, trachea midline. No JVD or lymphadenopathy. CARDIOVASCULAR: Regular rate and rhythm without audible murmurs, gallops, or rubs. RESPIRATORY: Breath sounds are coarse with scattered rhonchi bilaterally. No accessory muscle use. No wheezing GASTROINTESTINAL: Abdomen soft, non-tender, nondistended. No rebound or guarding. : Caceres to gravity MUSCULOSKELETAL: No cyanosis, or edema. No calf tenderness BACK: Nontender without obvious deformity. No CVA tenderness. Neuro: Awake and alert. Oriented to self alone. Unable to consistently follow commands. Word finding difficulty. Struggles to answer questions appropriately. (Keisha Kim MD R1) A/P Assessment and Plan 71-year-old female with history of Alzheimer's dementia presents with altered mental status and UTI. Will treat as below. Discharge Planning Pending clinical improvement and treatment of urinary tract infection. Speech therapy recommends ST at discharge. PT recommends PT at home. (Keisha Kim MD R1) Attending Attestation Patient seen and examined. Case reviewed and discussed Agree with plan of care as discussed with me and documented in the resident note. (Amanda Escamilla MD) Problem List: (1) Altered mental status Status: Acute Plan: Suspect related to urinary tract infection Treat UTI as below Blood culture: No growth to date (12/04) Fall precautions Nursing order to keep patient close to nursing station Empiric antibiotic therapy to include azithromycin 500 mg PO every 24 hours ( started 12/05) and ceftriaxone 1g IV every 24 hours (started 12/04) Neurology consulted - patient recommendations EEG performed on 12/06- shows probable mild diffuse abnormality suggesting a diffuse disturbance of cerebral function but no epileptiform features Imaging: Head CT negative Brain MRI: Marked central and cortical atrophy without acute infarction. Carotid ultrasound: Mild to moderate bilateral carotid plaques. Mild narrowing identified in the proximal left ICA without evidence of hemodynamically significant stenosis. Chest x-ray: No acute disease. MRA: Moderate intracranial atherosclerotic vascular disease. Previous labs: Urine Legionella and streptococcal antigen negative. RPR nonreactive Vitamin B12 284 (2) UTI (urinary tract infection) Status: Acute Plan: Continue 1 g IV ceftriaxone every 24 hours daily (12/04-) Urine culture: Gram-negative chapito (3) MARGARITO (acute kidney injury) Status: Resolved Plan: Likely prerenal - improved with fluids Fluids discontinued (4) FEN/PPX Status: Acute Plan: Fluids: Oral fluids only Electrolytes: Monitor and replace when necessary Nutrition: Regular diet Prophylaxis: Bilateral SCDs, Lovenox 40 mg subcutaneous every 24 hours Chronic medical conditions: CAD prevention/hypertension: Continue aspirin and metoprolol Dementia: Continue home donepezil and memantine GERD: Continue omeprazole (Keisha Kim MD R1) Keisha Kim MD R1 Dec 07, 2016 09:38 Amanda Escamilla MD Dec 07, 2016 16:33
[2016-12-07 12:48] VITALS: BP 125/59; PULSE 65; RESP 20; TEMP 98.6; O2SAT 95
--- NOTE | 2016-12-07 15:33 | RADRPT ---
EXAM DATE/TIME: 12/07/2016 14:41 [facility] COMPARISON: CHEST SINGLE AP, December 05, 2016, 10:59. INDICATIONS : Cough and congestion. MEDICAL HISTORY : Dementia. Cerebrovascular disease. Hypertension, Anticoagulant therapy. SURGICAL HISTORY : None. ENCOUNTER: Subsequent ACUITY: 3 days PAIN SCORE: 0/10 LOCATION: Bilateral chest FINDINGS: No infiltrate, effusion or pneumothorax. Heart size stable, within normal limits. Tortuous thoracic a kati again noted. CONCLUSION: No evidence of acute cardiopulmonary disease. Sergio New MD on December 07, 2016 at 15:30 Board Certified Radiologist. This report was verified electronically.
[2016-12-07] MEDS: cefTRIAXone INJ 1,000 MG in SODIUM CHLORIDE 0.9% INJ 100 ML IV SCH (15:40)
[2016-12-07 16:27] VITALS: BP 129/77; PULSE 77; RESP 18; TEMP 97.6; O2SAT 96
[2016-12-07 20:51] VITALS: BP 118/83; PULSE 86; RESP 18; TEMP 97.6; O2SAT 97
[2016-12-07] MEDS: DONEPEZIL HCL 5 MG TAB PO SCH (21:58)
[2016-12-08 01:52] VITALS: BP 124/73; PULSE 82; RESP 18; TEMP 97.9; O2SAT 96
[2016-12-08 04:52] LABS: HEMATOCRIT 38.7 % (35.0-46.0); MEAN CELL VOLUME 87.1 FL (80.0-100.0); MEAN CORPUSCULAR HEMOGLOBIN 29.2 PG (27.0-34.0); MEAN CORPUSCULAR HGB CONC 33.6 % (32.0-36.0); PLATELET COUNT 158 TH/MM3 (150-450); RED BLOOD COUNT 4.44 MIL/MM3 (4.00-5.30); RED CELL DISTRIBUTION WIDTH 14.3 % (11.6-17.2); REVIEW FLAG FINAL; WHITE BLOOD COUNT 7.1 TH/MM3 (4.0-11.0)
[2016-12-08 05:20] LABS: ANION GAP 7 MEQ/L (5-15); AST (GOT) 23 U/L (15-37); BICARBONATE 30.7 MEQ/L (21.0-32.0); BLOOD UREA NITROGEN 12 MG/DL (7-18); CHLORIDE 103 MEQ/L (98-107); GLOMERULAR FILTRATION RATE 79 ML/MIN (>89); SODIUM (NA) 141 MEQ/L (136-145)
[2016-12-08 05:28] LABS: ALKALINE PHOSPHATASE 62 U/L (45-117); ALT (GPT) 24 U/L (10-53); TOTAL BILIRUBIN ADULT 0.4 MG/DL (0.2-1.0)
[2016-12-08 05:30] VITALS: BP 122/75; PULSE 76; RESP 18; TEMP 97.7; O2SAT 97
[2016-12-08 08:32] VITALS: BP 137/63; PULSE 72; RESP 20; TEMP 98.4; O2SAT 95
[2016-12-08] MEDS: ASPIRIN 325 MG TAB PO SCH (08:56)
[2016-12-08] MEDS: AZITHROMYCIN 250 MG TAB PO SCH (08:56)
[2016-12-08] MEDS: PANTOPRAZOLE SOD 20 MG DELAYED RELEASE TAB PO SCH (08:56)
[2016-12-08] MEDS: METOPROLOL TARTRATE 25 MG TAB PO SCH ×2 (08:56→20:39)
[2016-12-08] MEDS: ENOXAPARIN SODIUM 40 MG/0.4 ML SYRINGE SQ SCH (08:56)
--- NOTE | 2016-12-08 09:35 | HHI.FPPN ---
Subjective Remarks Pt was lying comfortably in bed. her nurse reported no concerns overnight. (Eko Keisha MD R1) Objective Vitals Vital Signs Date Time Temp Pulse Resp B/P Pulse Ox O2 Delivery O2 Flow Rate FiO2 12/08/16 08:32 98.4 72 20 137/63 95 12/08/16 05:30 97.7 76 18 122/75 97 12/08/16 01:52 97.9 82 18 124/73 96 12/07/16 20:51 97.6 86 18 118/83 97 12/07/16 16:27 97.6 77 18 129/77 96 12/07/16 12:48 98.6 65 20 125/59 95 I/O 12/07/16 12/07/16 12/07/16 12/08/16 12/08/16 12/08/16 07:00 15:00 23:00 07:00 15:00 23:00 Intake Total 100 ml 150 ml Balance 100 ml 150 ml Intake Oral 150 ml IV Total 100 ml # Voids 3 # Bowel Movements 1 (EkoKeisha MD R1) Result Diagram: 12/08/16 0444 12/08/16 0444 Imaging Last Impressions Chest X-Ray 12/07/16 0000 Signed Impressions: Service Date/Time: Wednesday, December 07, 2016 14:41 - CONCLUSION: No evidence of acute cardiopulmonary disease. Sergio New MD Head Magnetic Resonance Angiography 12/05/16 0000 Signed Impressions: Service Date/Time: Monday, December 05, 2016 14:53 - CONCLUSION: Moderate intracranial atherosclerotic vascular disease. Mark Brooke MD FACR Carotid Artery Ultrasound 12/05/16 0000 Signed Impressions: Service Date/Time: Monday, December 05, 2016 13:42 - CONCLUSION: Mild to moderate bilateral carotid plaques. Mild/moderate narrowing in the proximal right internal carotid artery based on velocity measurements and ICA/CCA ratio. Mild narrowing identified in the proximal left internal carotid artery without evidence of hemodynamically significant stenosis. Antegrade flow both vertebral arteries. Brett Chaudhary MD Brain MRI 12/05/16 0000 Signed Impressions: Service Date/Time: Monday, December 05, 2016 14:53 - CONCLUSION: 1. Marked central and cortical atrophy without acute infarction. 2. Ventricular dilatation appears appropriate for the degree of sulcal dilatation. Mark Brooke MD FACR Head CT 12/04/16 0000 Signed Impressions: Service Date/Time: Sunday, December 04, 2016 15:23 - CONCLUSION: No significant change has occurred. Dusty Woodward MD Objective Remarks GENERAL: Elderly female lying in bed, awake. NAD SKIN: Warm and dry. No rashes or lesions HEAD: Normocephalic. Atraumatic EYES: No scleral icterus. No injection or drainage. ENT: OP clear. Nasal cannula in place. NECK: Supple, trachea midline. No JVD or lymphadenopathy. CARDIOVASCULAR: Regular rate and rhythm without audible murmurs, gallops, or rubs. RESPIRATORY: Breath sounds are coarse with scattered rhonchi bilaterally and transmitted upper respiratory sounds. No accessory muscle use. No wheezing GASTROINTESTINAL: Abdomen soft, non-tender, nondistended. No rebound or guarding. : Caceres to gravity MUSCULOSKELETAL: No cyanosis, or edema. No calf tenderness BACK: Nontender without obvious deformity. No CVA tenderness. Neuro: Awake and alert. Oriented to self alone. Unable to consistently follow commands. Does not answer questions appropriately. (Keisha Kim MD R1) A/P Assessment and Plan 71-year-old female with history of Alzheimer's dementia presents with altered mental status and UTI. Will treat as below. Discharge Planning Pending clinical improvement and treatment of urinary tract infection. Speech therapy recommends ST at discharge. PT recommends PT at home. (Keisha Kim MD R1) Attending Attestation Patient seen and examined Case reviewed and discussed Agree with plan of care as discussed with me and documented in the resident note. (Amanda Escamilla MD) Problem List: (1) Altered mental status Status: Acute Plan: Suspect related to urinary tract infection Treat UTI as below Blood culture: No growth to date (12/04) Fall precautions Nursing order to keep patient close to nursing station Empiric antibiotic therapy to include azithromycin 500 mg PO every 24 hours ( started 12/05) and ceftriaxone 1g IV every 24 hours (started 12/04) Neurology consulted - patient recommendations EEG performed on 12/06- shows probable mild diffuse abnormality suggesting a diffuse disturbance of cerebral function but no epileptiform features Ordered swallow evaluation with speech therapy due to some apparent difficulties that pt has with swallowing Imaging: Head CT negative Brain MRI: Marked central and cortical atrophy without acute infarction. Carotid ultrasound: Mild to moderate bilateral carotid plaques. Mild narrowing identified in the proximal left ICA without evidence of hemodynamically significant stenosis. Chest x-ray x2: No acute disease MRA: Moderate intracranial atherosclerotic vascular disease. Previous labs: Urine Legionella and streptococcal antigen negative. RPR nonreactive Vitamin B12 284 (2) UTI (urinary tract infection) Status: Acute Plan: Continue 1 g IV ceftriaxone every 24 hours daily (3/5-) Urine culture: Gram-negative chapito (3) MARGARITO (acute kidney injury) Status: Resolved Plan: Likely prerenal - improved with fluids Fluids discontinued Strict Is & Os (4) FEN/PPX Status: Acute Plan: Fluids: Oral fluids only Electrolytes: Monitor and replace when necessary Nutrition: Regular diet Prophylaxis: Bilateral SCDs, Lovenox 40 mg subcutaneous every 24 hours Chronic medical conditions: CAD prevention/hypertension: Continue aspirin and metoprolol Dementia: Continue home donepezil and memantine GERD: Continue omeprazole (Keisha Kim MD R1) Keisha Kim MD R1 Dec 08, 2016 09:35 Amanda Escamilla MD Dec 09, 2016 13:40
[2016-12-08 12:00] VITALS: BP 115/68; PULSE 83; RESP 18; TEMP 98.3; O2SAT 97
[2016-12-08 16:00] VITALS: BP 121/59; PULSE 78; RESP 18; TEMP 98; O2SAT 93
--- NOTE | 2016-12-08 16:45 | MB ---
cc: BERNARDO TOLENTINO MD DATE OF CONSULTATION 12/06/16 REASON FOR CONSULTATION Altered mental status. HISTORY OF PRESENT ILLNESS Mrs. Houston is a 71-year-old female with past medical history of Alzheimer's dementia follows up with Dr. English who presented to the [facility] with altered mental status. The and a caregiver are at the bedside. The patient is a poor historian due to the baseline dementia and recent confusional state. Hence the medical information is obtained from the and from the medical records. The patient states that this started three days ago and she is normally alert and oriented and she takes care of herself. She showers herself. She bathes herself. She can walk and communicate. She can dress herself, but he is baseline demented. He apparently states that she started to lose balance, fall and become confused and he reports an episode where she lost control of her bladder and bowel. He called Dr. English's office and was recommended to go to the emergency room. REVIEW OF SYSTEMS Unable to obtain. PAST MEDICAL HISTORY Per medical records, 1. Alzheimer's dementia 2. Prediabetic PAST SURGICAL HISTORY 1. Tonsillectomy 2. Vaginal delivery MEDICATIONS 1. Aspirin 325. 2. Metoprolol 3. Namenda 98 mg 4. Omeprazole 5. Compazine 10 mg ALLERGIES TETANUS TOXOID FAMILY HISTORY Per medical records. Father pancreatici cancer. Mother pneumonia and Alzheimer's. SOCIAL HISTORY , lives with her . Former tobacco smoker, quit 1997. Denies alcohol or illicit drug abuse. PHYSICAL EXAMINATION GENERAL: The patient is not in acute distress. Confused and alert only to person. No abnormal movement noted. HEENT: Atraumatic, normocephalic. Tracks with eyes. Intact vision. Intact hearing. NECK: No signs of meningeal irritation. No carotid bruits. CARDIOVASCULAR: Regular rate and rhythm. RESPIRATORY: Clear to auscultation. No wheezes. MUSCULOSKELETAL: Moves four extremities equally. No clubbing, cyanosis, no deformity. NEUROLOGIC: The patient is awake, alert, oriented to person only. Follows simple commands, open and close your eyes and squeeze hands but no intelligible speech. confused. She mumbles are few words, not able to understand even by who was at the bedside. No gaze deviation. Pupils are 3 mm bilaterally equally reacting to light. No facial asymmetry is noted. Moves four extremities equally. No abnormal movements. Normal tone and mild fine hand tremor. Reflexes 2+ bilateral symmetrical. Plantars are bilaterally downgoing. LABORATORY DATA White blood cells 7.9, hemoglobin 14.2, MCV 90.3, platelets 156, Sodium 141, potassium 3.4, anion gap 11, creatinine 1.3, BUN 19, AST 59, ALT 29, alkaline phosphatase 73. IMAGING STUDIES - Head CT scan with no significant acute intracranial abnormality. Brain MRI with marked central and cortical atrophy without acute infarction. Ventricular dilation appears appropriate for dilatation. - Head MRA - moderate intracranial atherosclerotic vascular disease. - Carotid ultrasound - mild to moderate bilateral carotid plaques mild-to- moderate narrowing in the proximal right ICA based on the last measurements in ICA/CCA ratio, mild narrowing identified in the right proximal left ICA without evidence of hemodynamically significant stenosis. Antegrade flow in both vertebral arteries. DIAGNOSTIC IMPRESSION 1. Encephalopathy 2. History of Alzheimer's dementia 3. Urinary tract infection 4. Acute kidney injury - Likely etiology of encephalopathy is metabolic/infectious in origin. - EEG with no ictal activity and no abnormal epileptiform discharges. - Unlikely central nervous system etiology given the nonfocal neurologic exam. No evidence of acute intracranial findings on the brain imaging and EEG with no evidence of an ictal activity. PLAN 1. Neuro checks q four hourly. 2. Management of the infectious metabolic etiology by the attending team 3. No need for further neurologic workup. 4. Please contact neurology consult service when needed. 4. Follow up with Dr. English in her office when encephalopathy results. Thank you for the opportunity to participate in the care of your patient. MD JOSE G Carroll/ /9:24 PM /11:11 PM EVITA
[2016-12-08 20:13] VITALS: BP 122/68; PULSE 82; RESP 18; TEMP 97.8; O2SAT 97
[2016-12-08] MEDS: DONEPEZIL HCL 5 MG TAB PO SCH (20:39)
[2016-12-09] VITALS: BP 118/62; PULSE 76; RESP 20; TEMP 98.4; O2SAT 96
[2016-12-09 04:00] VITALS: BP_SYST 104; BP_SYST 135; BP_DIAS 56; BP_DIAS 78; PULSE 69; PULSE 77; RESP 22; RESP 24; TEMP 97.8; TEMP 97.9; O2SAT 88; O2SAT 92
[2016-12-09 06:02] LABS: MEAN CELL VOLUME 86.4 FL (80.0-100.0); MEAN CORPUSCULAR HEMOGLOBIN 30.1 PG (27.0-34.0); MEAN CORPUSCULAR HGB CONC 34.9 % (32.0-36.0); PLATELET COUNT 186 TH/MM3 (150-450); RED CELL DISTRIBUTION WIDTH 13.8 % (11.6-17.2); REVIEW FLAG FINAL; WHITE BLOOD COUNT 7.7 TH/MM3 (4.0-11.0)
[2016-12-09 06:24] LABS: BICARBONATE 28.1 MEQ/L (21.0-32.0)
[2016-12-09 08:00] VITALS: BP 141/61; PULSE 77; RESP 18; TEMP 98.2; O2SAT 95
[2016-12-09 08:06] VITALS: PULSE 75
[2016-12-09] MEDS: ENOXAPARIN SODIUM 40 MG/0.4 ML SYRINGE SQ SCH (09:22)
[2016-12-09] MEDS: ASPIRIN 325 MG TAB PO SCH (09:23)
[2016-12-09] MEDS: PANTOPRAZOLE SOD 20 MG DELAYED RELEASE TAB PO SCH (09:23)
[2016-12-09] MEDS: AZITHROMYCIN 250 MG TAB PO SCH (09:23)
[2016-12-09] MEDS: METOPROLOL TARTRATE 25 MG TAB PO SCH (09:23)
[2016-12-09 12:00] VITALS: BP_SYST 115; BP_SYST 134; BP_DIAS 63; BP_DIAS 70; PULSE 70; PULSE 75; RESP 18; TEMP 97.9; TEMP 98.2; O2SAT 94; O2SAT 95
--- NOTE | 2016-12-09 12:13 | HHI.FPPN ---
Subjective Remarks Patient lying comfortably in bed, watching TV, at bedside. Very pleasant , reads words off the TV screen, but mental status remains unchanged. We explained to the that the change in her mental status most likely is progression of her dementia, since she did not improve with treatment of her UTI. (Keisha Kim MD R1) Objective Vitals Vital Signs Date Time Temp Pulse Resp B/P Pulse Ox O2 Delivery O2 Flow Rate FiO2 12/09/16 12:00 97.9 75 18 115/70 94 12/09/16 08:00 98.2 77 18 141/61 95 12/09/16 04:00 97.9 77 22 135/78 88 12/09/16 04:00 97.8 69 24 104/56 92 12/09/16 00:00 98.4 76 20 118/62 96 12/08/16 20:13 97.8 82 18 122/68 97 12/08/16 16:00 98.0 78 18 121/59 93 I/O 12/08/16 12/08/16 12/08/16 12/09/16 12/09/16 12/09/16 07:00 15:00 23:00 07:00 15:00 23:00 Intake Total 240 ml 30 ml Balance 240 ml 30 ml Intake Oral 240 ml 30 ml # Voids 2 # Bowel Movements 1 (Keisha Kim MD R1) Result Diagram: 12/09/16 0541 12/09/16 05 Objective Remarks GENERAL: Elderly female sitting up in bed, awake. NAD SKIN: Warm and dry. No rashes or lesions HEAD: Normocephalic. Atraumatic EYES: No scleral icterus. No injection or drainage. ENT: OP clear. Nasal cannula in place. NECK: Supple, trachea midline. No JVD or lymphadenopathy. CARDIOVASCULAR: Regular rate and rhythm without audible murmurs, gallops, or rubs. RESPIRATORY: Coarse breath sounds with some transmitted upper respiratory sounds improved from the previous day. No accessory muscle use. No wheezing GASTROINTESTINAL: Abdomen soft, non-tender, nondistended. No rebound or guarding. MUSCULOSKELETAL: No cyanosis, or edema. No calf tenderness BACK: Nontender without obvious deformity. No CVA tenderness. Neuro: Awake and alert. Oriented to self alone. Unable to consistently follow commands. Does not answer questions appropriately. (Keisha Kim MD R1) A/P Assessment and Plan 71-year-old female with history of Alzheimer's dementia presents with altered mental status and UTI. Will treat as below. Discharge Planning Pending improvement in hypoxia. Speech therapy recommends ST at discharge. PT recommends PT at home but pt will be discharged to acute rehab and her will pursue options after that. (Keisha Kim MD R1) Attending Attestation Patient seen and examined with the resident team. Case reviewed and discussed Agree with plan of care as discussed with me and documented in the resident note. (Amanda Escamilla MD) Problem List: (1) Altered mental status Status: Acute Plan: Suspect related to urinary tract infection Treat UTI as below Blood culture: No growth to date (12/04) Fall precautions Nursing order to keep patient close to nursing station DC Azithromycin since pt has completed 5 doses Neurology consulted -recommend outpatient follow-up, no further workup needed EEG performed on 12/06- shows probable mild diffuse abnormality suggesting a diffuse disturbance of cerebral function but no epileptiform features Ordered swallow evaluation with speech therapy due to some apparent difficulties that pt has with swallowing - continue mechanical soft and thin liquids Imaging: Head CT negative Brain MRI: Marked central and cortical atrophy without acute infarction. Carotid ultrasound: Mild to moderate bilateral carotid plaques. Mild narrowing identified in the proximal left ICA without evidence of hemodynamically significant stenosis. Chest x-ray x2: No acute disease MRA: Moderate intracranial atherosclerotic vascular disease. Previous labs: Urine Legionella and streptococcal antigen negative. RPR nonreactive Vitamin B12 284 (2) UTI (urinary tract infection) Status: Acute Plan: Discontinued Rocephin, patient received 4 days of treatment which is sufficient for uncomplicated UTI Urine culture: Gram-negative chapito (3) MARGARITO (acute kidney injury) Status: Resolved Plan: Likely prerenal - improved with fluids Fluids discontinued Strict Is & Os (4) FEN/PPX Status: Acute Plan: Fluids: Oral fluids only Electrolytes: Monitor and replace when necessary Nutrition: Regular diet, mechanical soft with thin liquids per speech therapy Prophylaxis: Bilateral SCDs, Lovenox 40 mg subcutaneous every 24 hours Chronic medical conditions: CAD prevention/hypertension: Continue aspirin and metoprolol Dementia: Continue home donepezil and memantine GERD: Continue omeprazole (Keisha Kim MD R1) Keisha Kim MD R1 Dec 09, 2016 12:12 Amanda Escamilla MD Dec 09, 2016 16:25
[2016-12-09] MEDS ORDERED: SENN1TAB PO ×2 (14:00→14:01)
--- NOTE | 2016-12-09 14:03 | HHI.DCPOC ---
Discharge Care Plan Diagnosis: (1) Hypertension (2) Urinary incontinence (3) Alzheimer's dementia (4) MARGARITO (acute kidney injury) (5) UTI (urinary tract infection) (6) Altered mental status Goals to Promote Your Health * To prevent worsening of your condition and complications * To maintain your health at the optimal level Directions to Meet Your Goals Take your medications as prescribed Follow your dietary instruction Follow activity as directed Keep your appointments as scheduled Take your immunizations and boosters as scheduled If your symptoms worsen call your PCP, if no PCP go to Urgent Care Center or Emergency Room Smoking is Dangerous to Your Health. Avoid second hand smoke Call the 24-hour hour crisis hotline for domestic abuse at Keisha Kim MD R1 Dec 09, 2016 14:02
[2016-12-09 16:00] VITALS: BP 164/80; PULSE 98; RESP 20; TEMP 98.2; O2SAT 95
[2016-12-09] MEDS ORDERED: ALBU0.08 NEB (16:23)
--- NOTE | 2016-12-10 16:21 | HHI.DS ---
Discharge Summary Admission Date Dec 05, 2016 at 14:37 Discharge Date: Dec 09, 2016 Admitting Diagnosis urinary tract infection, altered mental status (1) Altered mental status (2) UTI (urinary tract infection) Diagnosis: Secondary (3) MARGARITO (acute kidney injury) Diagnosis: Secondary Brief History 71-year-old female here with a past history of Alzheimer's dementia presents with altered mental status. At the time of my interview, she is the only one in the room. She is unable to provide any history given her mental state. I called her José Houston. He states that everything started in the last 2 days. Normally she is alert and oriented to person place and time. She takes her own showers and dresses herself. She has been unable to do this for the last 2 days. She started losing her balance which caused her to fall twice. He does not think she has fractures anywhere. She has been able to stand and walk since the falls but slower. She has lost control of her bowel movements and wet the bed. He called Dr. Olivarez office and was recommended he come to the ER with her. CBC/BMP: 12/09/16 0541 12/09/16 0541 Significant Findings Laboratory Tests Test 12/08/16 12/09/16 04:44 05:41 Estimat Glomerular Filtration 79 ML/MIN (>89) Rate Random Glucose 112 MG/DL 124 MG/DL (74-106) (74-106) Albumin 2.9 GM/DL (3.4-5.0) PE at Discharge GENERAL: Elderly female sitting up in bed, awake. NAD SKIN: Warm and dry. No rashes or lesions HEAD: Normocephalic. Atraumatic EYES: No scleral icterus. No injection or drainage. ENT: OP clear. Nasal cannula in place. NECK: Supple, trachea midline. No JVD or lymphadenopathy. CARDIOVASCULAR: Regular rate and rhythm without audible murmurs, gallops, or rubs. RESPIRATORY: Coarse breath sounds with some transmitted upper respiratory sounds improved from the previous day. No accessory muscle use. No wheezing GASTROINTESTINAL: Abdomen soft, non-tender, nondistended. No rebound or guarding. MUSCULOSKELETAL: No cyanosis, or edema. No calf tenderness BACK: Nontender without obvious deformity. No CVA tenderness. Neuro: Awake and alert. Oriented to self alone. Unable to consistently follow commands. Does not answer questions appropriately. Hospital Course 71-year-old female with history of Alzheimer's dementia presented with altered mental status and UTI. She was treated with IV antibiotics for her UTI, but her mental status did not improve. We explained to the that the change in her mental status most likely is progression of her dementia, since she did not improve with treatment of her UTI. Neurology was consulted and recommended no further workup and follow up with her neurologist Dr. English in clinic. He remained stable clinically and was discharged in stable condition to an [facility] for acute rehabilitation. Pt Condition on Discharge: Stable Discharge Disposition: Discharge to SNF Discharge Instructions DIET: Follow Instructions for: As Tolerated, No Restrictions Speech Therapy-Diet Recommends: Soft Activities you can perform: Regular-No Restrictions Follow up Referrals: Appointment for Follow Up - 2 Weeks Neurology - 1 Week SNF/[facility]/ with [facility] New Medications: Albuterol Neb (Albuterol Neb) 2.5 Mg/3 Ml Neb 2.5 MG NEB Q4HR NEB PRN SHORTNESS OF BREATH #60 Ref 0 NEBULE Sennosides-Docusate Sodium (Senna Plus 8.6-50 mg) 1 Tab Tab 1 TAB PO HS PRN CONSTIPATION #30 TAB Continued Medications: Aspirin (Aspirin) 325 Mg Tab 325 MG PO DAILY #30 Ref 0 TAB Donepezil (Donepezil) 10 Mg Tab 10 MG PO HS Dementia #30 Ref 0 TAB Memantine Er (Namenda Xr) 28 Mg Caper 28 MG PO DAILY Alzheimer Disease #30 Ref 0 CAP Metoprolol Tartrate (Metoprolol Tartrate) 25 Mg Tab 25 MG PO BID #60 Ref 0 TAB Omeprazole (Omeprazole) 20 Mg Tab 20 MG PO DAILY #30 Ref 0 TAB Discontinued Medications: Cephalexin (Keflex) 500 Mg Cap 500 MG PO Q12H Infection Days 7 Ref 0 CAP Keisha Kim MD R1 Dec 10, 2016 16:21
[2016-12-22] MEDS ORDERED: METO25TA3 PO (13:08)
[2017-01-11] MEDS ORDERED: PERI8.6T PO (11:57)
== END 2016-12-09 18:45 | DRG 689 ==
LOC: NEPA 14:49 → NEDA 18:44 → INTOOBSV 18:44 → NEDH 23:02 → NEPGCP 23:30 → OBSVTOIN 12-05 14:37 → N04A 12-08 22:55
PROVIDERS: ADMIT Family Medicine; ATTEND Family Medicine
DX: N39.0 Urinary tract infection, site not specified (principal); G93.41 Metabolic encephalopathy; N17.9 Acute kidney failure, unspecified; E87.0 Hyperosmolality and hypernatremia; G30.9 Alzheimer's disease, unspecified; F02.80 Dementia in other diseases classified elsewhere, unspecified severity, without behavioral disturbance, psychotic disturbance, mood disturbance, and anxiety; K59.00 Constipation, unspecified; I10 Essential (primary) hypertension; R73.03 Prediabetes; E87.6 Hypokalemia; D69.6 Thrombocytopenia, unspecified; E78.00 Pure hypercholesterolemia, unspecified; Z87.891 Personal history of nicotine dependence
CPT/HCPCS: 70450; 70544; 70551; 71010; 71020; 80048; 80053; 81001; 82607; 83605; 83735; 84100; 84425; 85007; 85025; 85027; 86592; 87040; 87077; 87086; 87186; 87449; 93880; 95819; 96361; 96365; G0378; J0696; J1650; J3480; J7030; P9612

== ENCOUNTER 2017-08-06 15:09 | Emergency (ER) | payer MEDICARE, BC ==
[~2017-08-06] VITALS: Ht 157.5 cm; Wt 80.0 kg
[~2017-08-06 15:09] MED LIST changes: +ALBU0.08 NEB; -ARIC5TAB PO; +ASPI-183 PO; -ASPI325T PO; -CITA10TA4 PO; +DONE10TA7 PO; -LIPI40TA PO; -MEMA1CAP2 PO; +MEMA28CA PO; -METO25 PO; +METO25TA3 PO; -OMEP20TA PO; +OMEP20TA93 PO; +PERI8.6T PO; -[UNRECOGNIZED DRUG - CODE] PO; -[UNRECOGNIZED DRUG - SUPPLY]
[2017-08-06 15:34] VITALS: BP 140/95; PULSE 78; RESP 16; TEMP 97.9; O2SAT 97
[2017-08-06] MEDS ORDERED: ACETAMINOPHEN 325 MG TAB PO ONE (15:45)
--- NOTE | 2017-08-06 16:01 | PD ---
HPI Chief Complaint: Fall Time Seen by Provider: 15:29 Travel History International Travel<30 days: No Contact w/Intl Traveler<30days: No Traveled to known affect area: No History of Present Illness HPI 72-year-old female presents to the emergency room presents to the emergency room via ambulance for evaluation of right lower extremity pain after mechanical fall just prior to arrival. Patient is severely demented and cannot answer questions. Her daughter is with her and provides most of the history. Daughter states she was taking a step down in her garage just prior to arrival when she lost her footing and fell forward on her bilateral knees. She twisted to the right. Daughter was holding patient's arms, assisting her with ambulation so the fall was assisted and slow. She did not hit her head or lose consciousness. Upon trying to stand, the patient was wincing when applying pressure to the right lower extremity. Patient takes Namenda, Donepezil, metoprolol, and aspirin. PFSH Past Medical History Hx Anticoagulant Therapy: Yes (325 ASPIRIN DAILY ) Alzheimer's Disease: Yes Arthritis: No Asthma: No Anxiety: No Depression: No Heart Rhythm Problems: Yes Cancer: No Cardiovascular Problems: Yes (CAROTID BLOCKAGE) High Cholesterol: Yes Chemotherapy: No Chest Pain: No Congestive Heart Failure: No COPD: No Cerebrovascular Accident: Yes ("SEVERAL" TIA'S ) Dementia: Yes Diabetes: No Endocrine: No Genitourinary: No Hypertension: Yes Musculoskeletal: No Neurologic: Yes (Dementia) Parkinson's Disease: Yes Psychiatric: Yes (Dementia) Reproductive: No Respiratory: No Migraines: No Radiation Therapy: No Seizures: No Sleep Apnea: No Thyroid Disease: No ?: Not Past Surgical History Abdominal Surgery: No AICD: No Arteriovenous Shunt: No Cardiac Surgery: No Ear Surgery: No Endocrine Surgery: No Eye Surgery: No Genitourinary Surgery: No Gynecologic Surgery: No Insulin Pump: No Joint Replacement: No Oral Surgery: No Pacemaker: No Thoracic Surgery: No Other Surgery: Yes Social History Alcohol Use: No (UNKNOWN- PT NOT RESPONDING TO THIS QUESTION) Tobacco Use: No (UNKNOWN- PT NOT RESPONDING TO THIS QUESTION) Substance Use: No (UNKNOWN- PT NOT RESPONDING TO THIS QUESTION) Allergies-Medications (Allergen,Severity, Reaction): Coded Allergies: tetanus toxoid, adsorbed (Unverified Allergy, Severe, paralyzed , 08/06/17) Paralyzed for 24 hours after shot Reported Meds & Prescriptions Reported Meds & Active Scripts Active Metoprolol Tartrate 25 Mg Tab 25 Mg PO BID Aspirin 325 Mg Tab 325 Mg PO DAILY Omeprazole 20 Mg Tab 20 Mg PO DAILY Jyoti-Colace (Sennosides-Docusate Sodium) 8.6-50 Mg Tab 1 Tab PO BID Albuterol Neb (Albuterol Sulfate) 2.5 Mg/3 Ml Neb 2.5 Mg NEB Q4HR NEB PRN Reported Namenda Xr (Memantine) 28 Mg Caper 28 Mg PO DAILY Donepezil 10 Mg Tab 10 Mg PO HS Review of Systems Except as stated in HPI: all other systems reviewed are Neg Physical Exam Narrative GENERAL: Well-nourished, well-developed elderly female in no acute distress. Afebrile. SKIN: Focused skin assessment warm/dry. HEAD: Normocephalic. EYES: No scleral icterus. No injection or drainage. NECK: Supple, trachea midline. No JVD or lymphadenopathy. CARDIOVASCULAR: Regular rate and rhythm without murmurs, gallops, or rubs. RESPIRATORY: Breath sounds equal bilaterally. No accessory muscle use. MSK: No obvious rotation or deformity of bilateral lower extremities. 2+ dorsalis pedis pulses bilaterally. Full range of motion of bilateral lower extremities. Patient is moving her foot spontaneously and does not appear to be in pain. No obvious edema. No ecchymosis. Data Data Last Documented VS Vital Signs Date Time Temp Pulse Resp B/P (MAP) Pulse Ox O2 Delivery O2 Flow Rate FiO2 08/06/17 15:34 97.9 78 16 140/95 (110) 97 Orders Orders Pelvis, Ap Only (Routine) (08/06/17 ) Knee, Complete (4vws) (08/06/17 ) Knee, Ltd (1 Or 2vws) (08/06/17 ) Femur (Ap & Lat/2vws) (08/06/17 ) Tibia/Fibula (Ap/Lat) (08/06/17 ) Foot, Limited (2vws) (08/06/17 ) Acetaminophen (Tylenol) (08/06/17 15:45) Ed Discharge Order (08/06/17 17:30) [facility] Medical Decision Making Medical Screen Exam Complete: Yes Emergency Medical Condition: Yes Medical Record Reviewed: Yes Differential Diagnosis Sprain, strain, contusion, fracture Narrative Course 72-year-old female presents to the emergency room via ambulance for evaluation of right lower extremity discomfort after mechanical fall just prior to arrival. Patient has severe Alzheimer's dementia and can provide no history. Her daughter is with her and states she tripped over a step and fell forward onto her knees. Patient did not hit her head or lose consciousness. Upon standing her, she began wincing when weight was applied to the right lower extremity. She was given Tylenol for pain. Physical exam is unremarkable. Bilateral lower extremities are neurovascularly intact with 2+ dorsalis pedis pulses. No shortening, rotation, or obvious deformity. No bony tenderness to palpation. Bilateral lower extremities have full range of motion. X-ray of the right femur, right knee, left knee, right tibia/fibula, and right foot are negative. X-ray of the pelvis is negative. Patient was ambulated well and briskly without much assistance in the emergency room. She did not appear to be in any pain. She is stable for discharge. Patient was told to follow-up with her primary care physician as needed or return for worsening symptoms. Her daughter understands and agrees to plan. Diagnosis Primary Impression: Fall Qualified Codes: W19.XXXA - Unspecified fall, initial encounter Additional Impression: Contusion, knee Qualified Codes: S80.01XA - Contusion of right knee, initial encounter Referrals: Primary Care Physician Additional Instructions: Rest and drink plenty of fluids. Please administer 650 mg Tylenol every 6 hours for the next 2 days. Apply ice to the affected area for 20 minutes at a time, as needed for pain and swelling. Follow-up with a primary care physician. Return to the emergency room for worsening symptoms. Disposition: 01 DISCHARGE HOME Condition: Stable Yamileth Schmidt Aug 06, 2017 16:01
--- NOTE | 2017-08-06 17:04 | RADRPT ---
EXAM DATE/TIME: 08/06/2017 16:02 [facility] COMPARISON: No previous studies available for comparison. INDICATIONS : Patient had a fall today on the right side but is unable to communicate where her injuries are. MEDICAL HISTORY : Cerebrovascular disease. Hypertension SURGICAL HISTORY : None. ENCOUNTER: Initial ACUITY: 1 day PAIN SCORE: Non-responsive. LOCATION: Right leg FINDINGS: Two view examination of the right tibia demonstrates no evidence of fracture or dislocation. Bony mi neralization is normal. The soft tissue structures are intact. CONCLUSION: Intact right leg. Sergio New MD on August 06, 2017 at 17:02 Board Certified Radiologist. This report was verified electronically.
--- NOTE | 2017-08-06 17:05 | RADRPT ---
EXAM DATE/TIME: 08/06/2017 16:09 [facility] COMPARISON: No previous studies available for comparison. INDICATIONS : Patient had a fall today on the right side but is unable to communicate where her injuries are. MEDICAL HISTORY : Cerebrovascular disease. Hypertension Dementia SURGICAL HISTORY : None. ENCOUNTER: Initial ACUITY: 1 day PAIN SCORE: Non-responsive. LOCATION: Right leg FINDINGS: Two view examination of the right femur demonstrates no evidence of fracture or dislocation. Bony mi neralization is normal. The soft tissue structures are intact. CONCLUSION: Intact right femur. Sergio New MD on August 06, 2017 at 17:03 Board Certified Radiologist. This report was verified electronically.
--- NOTE | 2017-08-06 17:05 | RADRPT ---
EXAM DATE/TIME: 08/06/2017 16:13 [facility] COMPARISON: No previous studies available for comparison. INDICATIONS : Patient had a fall today on the right side but is unable to communicate where her injuries are. MEDICAL HISTORY : Cerebrovascular disease. Hypertension Dementia SURGICAL HISTORY : None. ENCOUNTER: Initial ACUITY: 1 day PAIN SCORE: Non-responsive. LOCATION: Right leg FINDINGS: Four view examination of the right knee demonstrates no evidence of fracture or dislocation. Bony mi neralization is normal. The articular surfaces are intact. The suprapatellar soft tissues have a no rmal configuration. CONCLUSION: No fracture or subluxation or perceptible effusion of the right knee. Sergio New MD on August 06, 2017 at 17:03 Board Certified Radiologist. This report was verified electronically.
--- NOTE | 2017-08-06 17:06 | RADRPT ---
EXAM DATE/TIME: 08/06/2017 16:24 [facility] COMPARISON: No previous studies available for comparison. INDICATIONS : Patient had a fall today on the right side but is unable to communicate where her injuries are. MEDICAL HISTORY : Cerebrovascular disease. Hypertension Dementia SURGICAL HISTORY : None. ENCOUNTER: Initial ACUITY: 1 day PAIN SCORE: Non-responsive. LOCATION: Right leg FINDINGS: A single frontal view of the pelvis demonstrates no evidence of fracture. The bony pelvic ring is in tact. Bony mineralization is normal. The soft tissues are intact. CONCLUSION: Intact pelvis. Sergio New MD on August 06, 2017 at 17:04 Board Certified Radiologist. This report was verified electronically.
--- NOTE | 2017-08-06 17:06 | RADRPT ---
EXAM DATE/TIME: 08/06/2017 16:26 [facility] COMPARISON: No previous studies available for comparison. INDICATIONS : Fall trauma. MEDICAL HISTORY : Cerebrovascular disease. Hypertension Dementia SURGICAL HISTORY : None. ENCOUNTER: Initial ACUITY: 1 day PAIN SCORE: Non-responsive. LOCATION: Left knee FINDINGS: Two view examination of the left knee demonstrates no evidence of fracture or dislocation. Bony mine ralization is normal. The suprapatellar soft tissues have a normal configuration. CONCLUSION: No evidence of left knee fracture. Sergio New MD on August 06, 2017 at 17:04 Board Certified Radiologist. This report was verified electronically.
--- NOTE | 2017-08-06 17:07 | RADRPT ---
EXAM DATE/TIME: 08/06/2017 16:32 [facility] COMPARISON: No previous studies available for comparison. INDICATIONS : Patient had a fall today on the right side but is unable to communicate where her injuries are. MEDICAL HISTORY : Cerebrovascular disease. Hypertension SURGICAL HISTORY : None. ENCOUNTER: Initial ACUITY: 1 day PAIN SCORE: Non-responsive. LOCATION: Bilateral leg FINDINGS: Two view examination of the right foot demonstrates no soft tissue swelling, dislocation, or fracture . The calcaneus is intact. Bony mineralization is normal. CONCLUSION: No evidence of fracture or subluxation of the right foot. Sergio New MD on August 06, 2017 at 17:05 Board Certified Radiologist. This report was verified electronically.
--- NOTE | 2017-08-06 17:35 | PD ---
Physical Exam Date Seen by Provider: Aug 06, 2017 Time Seen by Provider: 16:30 Narrative I, Dr. Chowdhury, have reviewed the advance practice practitioner's documentation and am in agreement, met with the patient face to face, made the diagnosis, and the medical decision making was done by me. *My assessment and Findings: Patient seen and evaluated with PA, please see PA note for further details. She had fallen at home, complaining of right leg pains. However, in the ER, she is fairly nontender without obvious deformities. Family denies any head injury or loss of consciousness. Last 24 hours Impressions Tibia/Fibula X-Ray 08/06/17 0000 Signed Impressions: Service Date/Time: Sunday, August 06, 2017 16:02 - CONCLUSION: Intact right leg. Sergio New MD Pelvis X-Ray 08/06/17 0000 Signed Impressions: Service Date/Time: Sunday, August 06, 2017 16:24 - CONCLUSION: Intact pelvis. Sergio New MD Knee X-Ray 08/06/17 0000 Signed Impressions: Service Date/Time: Sunday, August 06, 2017 16:26 - CONCLUSION: No evidence of left knee fracture. Sergio New MD Knee X-Ray 08/06/17 0000 Signed Impressions: Service Date/Time: Sunday, August 06, 2017 16:13 - CONCLUSION: No fracture or subluxation or perceptible effusion of the right knee. Sergio New MD Foot X-Ray 08/06/17 0000 Signed Impressions: Service Date/Time: Sunday, August 06, 2017 16:32 - CONCLUSION: No evidence of fracture or subluxation of the right foot. Sergio New MD Femur X-Ray 08/06/17 0000 Signed Impressions: Service Date/Time: Sunday, August 06, 2017 16:09 - CONCLUSION: Intact right femur. Sergio New MD X-ray show no signs of acute fractures. At this point, my plan would be to release her with follow-up to primary care doctor. Return for any worsening in pain or new symptoms as needed. The plan was discussed with patient and family and they state understanding. Data Data Last Documented VS Vital Signs Date Time Temp Pulse Resp B/P (MAP) Pulse Ox O2 Delivery O2 Flow Rate FiO2 08/06/17 15:34 97.9 78 16 140/95 (110) 97 Orders Orders Pelvis, Ap Only (Routine) (08/06/17 ) Knee, Complete (4vws) (08/06/17 ) Knee, Ltd (1 Or 2vws) (08/06/17 ) Femur (Ap & Lat/2vws) (08/06/17 ) Tibia/Fibula (Ap/Lat) (08/06/17 ) Foot, Limited (2vws) (08/06/17 ) Acetaminophen (Tylenol) (08/06/17 15:45) Ed Discharge Order (08/06/17 17:30) MDM Medical Record Reviewed: Yes Supervised Visit with MARICRUZ: Yes Diagnosis Primary Impression: Fall Qualified Codes: W19.XXXA - Unspecified fall, initial encounter Additional Impression: Contusion, knee Qualified Codes: S80.01XA - Contusion of right knee, initial encounter Referrals: Primary Care Physician Additional Instruction: Rest and drink plenty of fluids. Please administer 650 mg Tylenol every 6 hours for the next 2 days. Apply ice to the affected area for 20 minutes at a time, as needed for pain and swelling. Follow-up with a primary care physician. Return to the emergency room for worsening symptoms. Disposition: 01 DISCHARGE HOME Condition: Stable Donya Chowdhury MD Aug 06, 2017 17:35
[2017-08-06] MEDS ORDERED: TYLE325T PO (17:40)
[2017-08-07] MEDS ORDERED: OLOP1DRO2 EACH EYE (10:21)
== END 2017-08-06 19:00 | disposition home or self-care (01) ==
LOC: NEPC 15:09
DX: S80.01XA Contusion of right knee, initial encounter (principal); W19.XXXA Unspecified fall, initial encounter; G30.9 Alzheimer's disease, unspecified; F02.80 Dementia in other diseases classified elsewhere, unspecified severity, without behavioral disturbance, psychotic disturbance, mood disturbance, and anxiety; G20 Parkinson's disease; I10 Essential (primary) hypertension; E78.00 Pure hypercholesterolemia, unspecified; Z86.73 Personal history of transient ischemic attack (TIA), and cerebral infarction without residual deficits
CPT/HCPCS: 72170; 73552; 73560; 73564; 73590; 73620; 99284